=== PATIENT | female | born 1985 | race Caucasian/White ===

== ENCOUNTER 2024-07-29 09:28 | Emergency (ER) | payer BC, SELFPAY ==
[2024-07-29 09:33] VITALS: BP 143/88; PULSE 95; TEMP 36.7; O2SAT 97; BMI 40.8
--- NOTE | 2024-07-29 09:43 | ED_ITS ---
HPI HPI - Extremity Injury (Lower) General Chief Complaint: Extremity Injury, Lower Stated Complaint: FALL Time Seen by Provider: 07/29/24 09:30 Source: patient Mode of arrival: walk-in History of Present Illness HPI Narrative: 38-year-old female presents for left ankle pain. Today about 2 hours ago she fell and twisted her left ankle and points to the lateral malleolus to indicate area of pain. She sustained a bruise to her right [place] as well but that does not hurt nearly as much. The pain is moderate and it hurts more to walk on it. Related Data Home Medications ?Medication ?Instructions ?Recorded ?Confirmed No Known Home Medications 07/29/24 07/29/24 Allergies Allergy/AdvReac Type Severity Reaction Status Date / Time No Known Drug Allergies Allergy Verified 07/29/24 09:37 Opioid HPI Opioid Management Most Recent Pain and Opioid Data: Last Pain Scale 6 07/29/24 10:06 07/29/24 Review of Systems ROS Narrative A ten point review of systems is negative except as noted above. PFSH PFSH Social History Little interest or pleasure in doing things: not at all Feeling down, depressed, or hopeless: not at all Exam Narrative Exam Narrative: Nurses note and vital signs reviewed and patient is not hypoxic. General: The patient appears well and in no apparent distress. Patient is resting comfortably on cart. Skin: Warm, dry, no pallor noted. There is no rash noted. Head: Normocephalic, atraumatic Eye: Normal conjunctiva, no drainage Ears, Nose, Mouth, and Throat: oral mucosa is moist. Nares patent. Cardiovascular: Regular Rate and Rhythm Respiratory: Patient is in no distress, no accessory muscle use Back: non-tender GI: Soft and nontender Musculoskeletal: Mild swelling and tenderness present at the left lateral malleolus. Skin intact. No tenderness in the foot including in the fifth metatarsal area. Neurological: A&O, normal speech Psychiatric: Cooperative Constitutional Vital Signs, click to edit/add: Last Vital Signs Temp 98.1 F 07/29/24 09:33 Pulse 95 H 07/29/24 09:33 Resp 18 07/29/24 09:33 BP 143/88 H 07/29/24 09:33 Pulse Ox 97 07/29/24 09:33 Course Vital Signs Vital signs: Vital Signs Temperature 98.1 F 07/29/24 09:33 Pulse Rate 95 H 07/29/24 09:33 Respiratory Rate 18 07/29/24 09:33 Blood Pressure 143/88 H 07/29/24 09:33 Pulse Oximetry 97 07/29/24 09:33 Temperature 98.1 F 07/29/24 09:33 Pulse Rate 95 H 07/29/24 09:33 Respiratory Rate 18 07/29/24 09:33 Blood Pressure 143/88 H 07/29/24 09:33 Pulse Oximetry 97 07/29/24 09:33 MDM - Extremity Injury (Lower) MDM Narrative Medical decision making narrative: She is not and x-ray is negative. Ayad wrap applied and application checked by me and found to be appropriate, she is neurovascular intact. She is placed on crutches and was given a work note for today. Treatment diagnosis and follow-up were discussed with the patient. Differential Diagnosis Differential diagnosis: Likely ankle sprain and strain and ankle fracture Imaging Data Left ankle: Radiologist's impression: ITS Impressions Ankle X-Ray 07/29/24 09:55 IMPRESSION: 1. No acute bone abnormality. Electronically authenticated by: DARWIN GONZALEZ Date: 07/29/2024 10:12 Discharge Plan Discharge Chief Complaint: Extremity Injury, Lower Clinical Impression: Left ankle sprain Patient Disposition: Home, Self-Care Time of Disposition Decision: 10:27 Condition: Good Mode of Transportation: Private Vehicle Prescriptions / Home Meds: No Action No Known Home Medications Print Language: Occitan Instructions: Ankle Sprain (ED), Crutch Instructions (ED), Ice Pack Application (ED) Referrals: Physician,Non-Staff, MD [Primary Care Provider] - 1 week
--- NOTE | 2024-07-29 09:55 | XR_ITS ---
The [address] [address] Patient Name: BRIT PAN MRN: [id number] date: 1985 Sex: F Assigned Patient Location: ER Current Patient Location: ED.MAIN Accession/Order Number: [id number] Exam Date: 07/29/2024 09:45 Report Date: 07/29/2024 10:12 At the request of: GREG SUAREZ Procedure: XR ankle LT min 3V PROCEDURE: XR ankle LT min 3V HISTORY: Fell, pain at lateral malleolus COMPARISON: None. FINDINGS: BONES:No fracture, acute abnormality, or significant arthropathy. SOFT TISSUES:Lateral soft tissue swelling. EFFUSION:None visible. OTHER: Negative. XR/XR ankle LT min 3V IMPRESSION: 1. No acute bone abnormality. Electronically authenticated by: DARWIN GONZALEZ Date: 07/29/2024 10:12
[2024-07-29 10:17] LABS: HCG Qualitative Urine* NEGATIVE (NEGATIVE); Internal Control Within Normal Limits
== END 2024-07-29 10:49 | disposition home or self-care (01) ==
PROVIDERS: Emergency Provider Emergency Medicine
DX: S93.402A Sprain of unspecified ligament of left ankle, initial encounter (principal); W19.XXXA Unspecified fall, initial encounter; X50.1XXA Overexertion from prolonged static or awkward postures, initial encounter
CPT/HCPCS: 73610; 84703; 99284